=== PATIENT | male | born 1995 | race Hispanic/Latino ===

== ENCOUNTER 2018-07-29 09:14 | Emergency (ER) | payer SELFPAY ==
[2018-07-29 10:09] LABS: BASOPHILS % (AUTO) 0.5 % (0.0-5.0); EOSINOPHILS % (AUTO) 0.9 % (0.0-8.0); HEMATOCRIT 46.7 % (42-54); MEAN CORPUSCULAR HEMOGLOBIN 29.3 pg (27.0-33.0); MEAN CORPUSCULAR HGB CONC 33.3 g/dL (32.0-36.0); MONOCYTES % (AUTO) 5.7 % (3.0-13.0); NEUTROPHILS % (AUTO) 69.9 % (40.0-77.0); NUCLEATED RED BLOOD CELLS 0.1 % (0.0-0.19); PLATELET COUNT (AUTO) 332 K/uL (130-400); RED BLOOD CELL COUNT(AUTO) 5.31 MIL/uL (4.50-6.20); WHITE BLOOD COUNT (AUTO) 10.7 K/uL (4.8-10.8)
[2018-07-29] MEDS ORDERED: DICYCLOMINE HCL 10 MG/ML 2ML AMP IM ONE (10:09)
[2018-07-29] MEDS ORDERED: SODIUM CHLORIDE 0.9% 1000ML 1,000 ML IV ONE (10:09)
[2018-07-29] MEDS ORDERED: ONDANSETRON HCL 4 MG/2 ML VIAL ONE (10:09)
[2018-07-29 10:13] LABS: CREATININE 0.8 mg/dL (0.5-1.5); POTASSIUM 4.5 mmol/L (3.5-5.1)
[2018-07-29 10:17] LABS: ALBUMIN 3.8 g/dL (3.5-5.0); BILIRUBIN,DIRECT 0.1 mg/dL (0.0-0.3); BILIRUBIN,TOTAL 0.5 mg/dL (0.2-1.0); TOTAL PROTEIN, SERUM 7.6 g/dL (6.0-8.3)
[2018-07-29 11:12] LABS: AMPHET/METH SCREEN,URINE NEGATIVE (NEGATIVE); BARBITURATE SCREEN, URINE NEGATIVE (NEGATIVE); BENZODIAZEPINES SCREEN,URINE NEGATIVE (NEGATIVE); CANNABINOID SCREEN,URINE POSITIVE (NEGATIVE); COCAINE SCREEN,URINE NEGATIVE (NEGATIVE); OPIATE SCREEN,URINE NEGATIVE (NEGATIVE); PHENCYCLIDINE SCREEN,URINE NEGATIVE (NEGATIVE)
== END 2018-07-29 11:28 | disposition home or self-care (01) ==
LOC: EDH 09:14
DX: K52.9 Noninfective gastroenteritis and colitis, unspecified (principal); Z72.0 Tobacco use
CPT/HCPCS: 36415; 74021; 80048; 80076; 80305; 83690; 85025; 96361; 96372; 96374; 99284; J0500; J2405; J7030

== ENCOUNTER 2018-07-30 08:53 | Emergency (ER) | payer SELFPAY | END 2018-07-30 09:16 | disposition home or self-care (01) | LOC: EDH 08:53 | DX: R11.2 Nausea with vomiting, unspecified (principal); R19.7 Diarrhea, unspecified; Z79.899 Other long term (current) drug therapy | CPT/HCPCS: 99281 ==

== ENCOUNTER 2018-08-01 14:38 | Emergency (ER) | payer SELFPAY ==
[2018-08-01] MEDS ORDERED: SODIUM CHLORIDE 0.9% 1000ML 1,000 ML IV ONE (15:38)
[2018-08-01] MEDS ORDERED: ONDANSETRON HCL 4 MG/2 ML VIAL ONE (15:38)
[2018-08-01] MEDS ORDERED: FAMOTIDINE/PF 20 MG/2 ML VIAL IV ONE (15:39)
[2018-08-01 15:47] LABS: BASOPHILS % (AUTO) 0.5 % (0.0-5.0); EOSINOPHILS % (AUTO) 0.4 % (0.0-8.0); HEMATOCRIT 45.9 % (42-54); LYMPHOCYTES % (AUTO) 27.4 % (21.0-51.0); MEAN CORPUSCULAR HEMOGLOBIN 29.8 pg (27.0-33.0); MEAN CORPUSCULAR VOLUME 87.9 fL (80-100); MONOCYTES % (AUTO) 5.8 % (3.0-13.0); NEUTROPHILS % (AUTO) 65.9 % (40.0-77.0); NUCLEATED RED BLOOD CELLS 0.1 % (0.0-0.19); PLATELET COUNT (AUTO) 382 K/uL (130-400); RED BLOOD CELL COUNT(AUTO) 5.22 MIL/uL (4.50-6.20); RED CELL DISTRIBUTION WIDTH 13.2 % (11.0-15.5); WHITE BLOOD COUNT (AUTO) 11.2 K/uL (4.8-10.8)
[2018-08-01 16:04] LABS: CREATININE 0.9 mg/dL (0.5-1.5); POTASSIUM 4.3 mmol/L (3.5-5.1)
[2018-08-01 16:09] LABS: ALBUMIN 3.9 g/dL (3.5-5.0); BILIRUBIN,DIRECT 0.1 mg/dL (0.0-0.3); BILIRUBIN,TOTAL 0.9 mg/dL (0.2-1.0); TOTAL PROTEIN, SERUM 8.1 g/dL (6.0-8.3)
[2018-08-01 16:18] LABS: RAPID GROUP A STREP NEGATIVE (NEGATIVE)
[2018-08-01 16:54] LABS: APPEARANCE,URINE Clear (CLEAR); BILIRUBIN,URINE Negative (NEGATIVE); COLOR,URINE Yellow (YELLOW); GLUCOSE, URINE (UA) Negative (NEGATIVE); KETONES,URINE Trace mg/dL (NEGATIVE); LEUKOCYTE ESTERASE ,URINE Trace (NEGATIVE); NITRATE,URINE Negative (NEGATIVE); OCCULT BLOOD,URINE Negative (NEGATIVE); PROTEIN,URINE Negative (NEGATIVE); UROBILINOGEN,URINE 0.2 mg/dL (0.2-1.0)
[2018-08-01 17:07] LABS: RBC,URINE 0-1 /HPF (0-1)
[2018-08-01 17:08] LABS: BACTERIA,URINE Rare /HPF (None Seen); SQUAMOUS EPITHELIAL CELL,UR Rare /HPF (0-2)
[2018-08-01] MEDS ORDERED: IOHEXOL-350 75 ML VIAL IV ONE (17:10)
[2018-08-01] MEDS ORDERED: IPRATROPIUM/ALBUTEROL SULFATE 3 ML SOLUTION IH ONE (18:01)
[2018-08-01] MEDS ORDERED: LEVOFLOXACIN 500 MG/D5W 100 ML 100 ML ONE (18:42)
== END 2018-08-01 20:00 | disposition home or self-care (01) ==
LOC: EDH 14:38
DX: K57.92 Diverticulitis of intestine, part unspecified, without perforation or abscess without bleeding (principal); R11.2 Nausea with vomiting, unspecified; R05 Cough
CPT/HCPCS: 36415; 71046; 74177; 80048; 80076; 81001; 82150; 83690; 85025; 86677; 87804 ×2; 87880; 94640; 96365; 96367; 96375; 99284; J1956; J2405; J3490; J7030; Q9967

== ENCOUNTER 2018-08-02 08:00 | Emergency (ER) | payer SELFPAY ==
[2018-08-02] MEDS ORDERED: DiphenhydrAMINE HCL 50 MG/ML VIAL ONE (08:28)
[2018-08-02] MEDS ORDERED: LEVOFLOXACIN 750 MG/D5W 150 ML 150 ML ONE (08:28)
[2018-08-02] MEDS ORDERED: PROCHLORPERAZINE EDISYLATE 10 MG/2 ML VIAL ONE (08:29)
[2018-08-02] MEDS ORDERED: MORPHINE SULFATE 2 MG/ML 1ML SYG ONE (08:29)
[2018-08-02 08:40] LABS: BASOPHILS % (AUTO) 0.4 % (0.0-5.0); EOSINOPHILS % (AUTO) 0.5 % (0.0-8.0); LYMPHOCYTES % (AUTO) 24.6 % (21.0-51.0); MEAN CORPUSCULAR HEMOGLOBIN 29.2 pg (27.0-33.0); MEAN CORPUSCULAR HGB CONC 33.6 g/dL (32.0-36.0); NEUTROPHILS % (AUTO) 67.5 % (40.0-77.0); PLATELET COUNT (AUTO) 374 K/uL (130-400); RED BLOOD CELL COUNT(AUTO) 5.29 MIL/uL (4.50-6.20); WHITE BLOOD COUNT (AUTO) 10.9 K/uL (4.8-10.8)
[2018-08-02 08:41] LABS: POTASSIUM 4.1 mmol/L (3.5-5.1)
[2018-08-02 08:47] LABS: BILIRUBIN,TOTAL 1.2 mg/dL (0.2-1.0); TOTAL PROTEIN, SERUM 8.2 g/dL (6.0-8.3)
== END 2018-08-02 10:50 | disposition home or self-care (01) ==
LOC: EDH 08:00
DX: K57.92 Diverticulitis of intestine, part unspecified, without perforation or abscess without bleeding (principal)
CPT/HCPCS: 36415; 74177; 80053; 83690; 85025; 96365; 96366; 96375; 99284; J0780; J1200; J1956

== ENCOUNTER 2018-08-06 20:07 | Emergency (ER) | payer SELFPAY ==
[2018-08-06] MEDS ORDERED: SODIUM CHLORIDE 0.9% 1000ML 1,000 ML IV ONE (20:29)
[2018-08-06] MEDS ORDERED: ONDANSETRON HCL 4 MG/2 ML VIAL ONE (20:42)
[2018-08-06] MEDS ORDERED: MORPHINE SULFATE 4 MG/1ML SYG ONE (20:43)
[2018-08-06 20:47] LABS: BASOPHILS % (AUTO) 0.7 % (0.0-5.0); EOSINOPHILS % (AUTO) 0.4 % (0.0-8.0); HEMATOCRIT 48.5 % (42-54); MEAN CORPUSCULAR HEMOGLOBIN 28.7 pg (27.0-33.0); MEAN CORPUSCULAR HGB CONC 33.7 g/dL (32.0-36.0); MEAN CORPUSCULAR VOLUME 85.3 fL (80-100); MONOCYTES % (AUTO) 8.8 % (3.0-13.0); NEUTROPHILS % (AUTO) 60.1 % (40.0-77.0); NUCLEATED RED BLOOD CELLS 0.1 % (0.0-0.19); PLATELET COUNT (AUTO) 412 K/uL (130-400); RED BLOOD CELL COUNT(AUTO) 5.69 MIL/uL (4.50-6.20); RED CELL DISTRIBUTION WIDTH 12.7 % (11.0-15.5); WHITE BLOOD COUNT (AUTO) 9.7 K/uL (4.8-10.8)
[2018-08-06 21:09] LABS: CREATININE 0.9 mg/dL (0.5-1.5); POTASSIUM 3.8 mmol/L (3.5-5.1)
[2018-08-06 21:10] LABS: ALBUMIN 4.2 g/dL (3.5-5.0); BILIRUBIN,TOTAL 0.8 mg/dL (0.2-1.0); TOTAL PROTEIN, SERUM 8.7 g/dL (6.0-8.3)
[2018-08-06 21:17] LABS: B-TYPE NATRIURETIC PEPTIDE 6 pg/mL (0-100)
[2018-08-06 21:32] LABS: APPEARANCE,URINE Cloudy (CLEAR); BILIRUBIN,URINE Moderate (NEGATIVE); COLOR,URINE Dark Yellow (YELLOW); GLUCOSE, URINE (UA) Negative (NEGATIVE); KETONES,URINE >=160 mg/dL (NEGATIVE); LEUKOCYTE ESTERASE ,URINE Moderate (NEGATIVE); NITRATE,URINE Positive (NEGATIVE); OCCULT BLOOD,URINE Negative (NEGATIVE); PH,URINE 5.5 (5.0-8.0); PROTEIN,URINE POS 2+ (NEGATIVE)
[2018-08-06 21:39] LABS: AMPHET/METH SCREEN,URINE NEGATIVE (NEGATIVE); BACTERIA,URINE Few /HPF (None Seen); BARBITURATE SCREEN, URINE NEGATIVE (NEGATIVE); BENZODIAZEPINES SCREEN,URINE NEGATIVE (NEGATIVE); CANNABINOID SCREEN,URINE POSITIVE (NEGATIVE); COCAINE SCREEN,URINE NEGATIVE (NEGATIVE); MUCUS,URINE Many LPF (None Seen); OPIATE SCREEN,URINE POSITIVE (NEGATIVE); PHENCYCLIDINE SCREEN,URINE NEGATIVE (NEGATIVE); RBC,URINE None Seen /HPF (0-1); SQUAMOUS EPITHELIAL CELL,UR None Seen /HPF (0-2)
[2018-08-06 21:55] LABS: INR 1.04 (0.85-1.15); PARTIAL THROMBOPLASTIN TIME 32.4 SEC (26.3-35.5); PROTHROMBIN TIME 10.9 SEC (9.6-11.6)
== END 2018-08-06 22:06 | disposition home or self-care (01) ==
LOC: EDH 20:07
DX: K52.9 Noninfective gastroenteritis and colitis, unspecified (principal); K29.01 Acute gastritis with bleeding; E86.0 Dehydration; N39.0 Urinary tract infection, site not specified
CPT/HCPCS: 36415; 80053; 80305; 81001; 82270; 83605; 83690; 83880; 84484; 85025; 85610; 85730; 96361; 96374; 99284; J2270; J2405; J7030

== ENCOUNTER 2018-08-09 16:58 | Inpatient (IN) | payer OTHER ==
[~2018-08-09] VITALS: Ht 167.6 cm; Wt 101.6 kg
[2018-08-09 17:47] LABS: BASOPHILS % (AUTO) 0.7 % (0.0-5.0); HEMATOCRIT 46.3 % (42-54); LYMPHOCYTES % (AUTO) 29.1 % (21.0-51.0); MEAN CORPUSCULAR HEMOGLOBIN 29.6 pg (27.0-33.0); MEAN CORPUSCULAR HGB CONC 34.4 g/dL (32.0-36.0); MONOCYTES % (AUTO) 11.3 % (3.0-13.0); NEUTROPHILS % (AUTO) 57.9 % (40.0-77.0); PLATELET COUNT (AUTO) 424 K/uL (130-400); RED BLOOD CELL COUNT(AUTO) 5.39 MIL/uL (4.50-6.20); RED CELL DISTRIBUTION WIDTH 12.9 % (11.0-15.5); WHITE BLOOD COUNT (AUTO) 12.4 K/uL (4.8-10.8)
[2018-08-09 17:50] LABS: APPEARANCE,URINE CLOUDY (CLEAR); BILIRUBIN,URINE MODERATE (NEGATIVE); COLOR,URINE YELLOW (YELLOW); GLUCOSE, URINE (UA) NEGATIVE (NEGATIVE); KETONES,URINE 40 mg/dL (NEGATIVE); LEUKOCYTE ESTERASE ,URINE TRACE (NEGATIVE); NITRATE,URINE NEGATIVE (NEGATIVE); OCCULT BLOOD,URINE NEGATIVE (NEGATIVE); PROTEIN,URINE NEGATIVE (NEGATIVE); UROBILINOGEN,URINE 0.2 mg/dL (0.2-1.0)
[2018-08-09 17:58] LABS: RBC,URINE 0-1 /HPF (0-1)
[2018-08-09 17:59] LABS: CREATININE 0.8 mg/dL (0.5-1.5); POTASSIUM 3.4 mmol/L (3.5-5.1)
[2018-08-09 18:00] LABS: BACTERIA,URINE Rare /HPF (None Seen)
[2018-08-09] MEDS ORDERED: SODIUM CHLORIDE 0.9% 1000ML 1,000 ML IV ONE ×2 (18:00→21:40)
[2018-08-09] MEDS ORDERED: LEVOFLOXACIN 750 MG/D5W 150 ML 150 ML ONE (18:00)
[2018-08-09] MEDS ORDERED: ONDANSETRON HCL 4 MG/2 ML VIAL ONE (18:00)
[2018-08-09] MEDS ORDERED: METRONIDAZOLE 500MG/100ML BAG 100 ML ONE (18:01)
[2018-08-09] MEDS ORDERED: MORPHINE SULFATE 4 MG/1ML SYG ONE (18:01)
[2018-08-09 18:02] LABS: AMORPHOUS SEDIMENT,UR Few /LPF (None Seen); MUCUS,URINE Few LPF (None Seen); SQUAMOUS EPITHELIAL CELL,UR Few /HPF (0-2)
[2018-08-09 18:03] LABS: ALBUMIN 4.2 g/dL (3.5-5.0); BILIRUBIN,TOTAL 0.6 mg/dL (0.2-1.0)
[2018-08-09] MEDS: SODIUM CHLORIDE 0.9% 1000ML 1,000 ML IV SCH (21:27)
[2018-08-09] MEDS: LEVOFLOXACIN 500 MG/D5W 100 ML 100 ML IV SCH (21:30)
[2018-08-09] MEDS ORDERED: MORPHINE SULFATE 4 MG/1ML SYG IV PRN (21:30)
[2018-08-09] MEDS ORDERED: ONDANSETRON HCL 4 MG/2 ML VIAL IV PRN (21:30)
[2018-08-09] MEDS ORDERED: ACETAMINOPHEN 325 MG TAB PO PRN (21:30)
[2018-08-09 23:00] VITALS: BP 129/80
[2018-08-10 04:15] VITALS: BP 134/70
[2018-08-10] MEDS: SODIUM CHLORIDE 0.9% 1000ML 1,000 ML IV SCH ×4 (05:25→20:03)
[2018-08-10 08:00] VITALS: BP 131/94
[2018-08-10] MEDS ORDERED: POTASSIUM CHLORIDE 10MEQ/100ML 100 ML IV PRN (09:45)
[2018-08-10] MEDS ORDERED: POTASSIUM CHLORIDE 10% ELIXIR 20 MEQ/15 ML UDCUP PO PRN (09:45)
[2018-08-10] MEDS ORDERED: LIDOCAINE HCL-MPF 1% 2ML VIAL IVP PRN (09:45)
[2018-08-10] MEDS ORDERED: POTASSIUM CHLORIDE 20 MEQ ERTAB PO PRN (09:45)
[2018-08-10 10:05] LABS: BASOPHILS % (AUTO) 0.6 % (0.0-5.0); HEMATOCRIT 41.3 % (42-54); LYMPHOCYTES % (AUTO) 38.3 % (21.0-51.0); MEAN CORPUSCULAR HEMOGLOBIN 29.3 pg (27.0-33.0); MEAN CORPUSCULAR HGB CONC 33.9 g/dL (32.0-36.0); MEAN CORPUSCULAR VOLUME 86.4 fL (80-100); MONOCYTES % (AUTO) 10.6 % (3.0-13.0); NEUTROPHILS % (AUTO) 48.5 % (40.0-77.0); NUCLEATED RED BLOOD CELLS 0.1 % (0.0-0.19); PLATELET COUNT (AUTO) 325 K/uL (130-400); RED BLOOD CELL COUNT(AUTO) 4.78 MIL/uL (4.50-6.20); RED CELL DISTRIBUTION WIDTH 12.6 % (11.0-15.5); WHITE BLOOD COUNT (AUTO) 8.1 K/uL (4.8-10.8)
[2018-08-10 10:14] LABS: CREATININE 0.8 mg/dL (0.5-1.5); POTASSIUM 3.8 mmol/L (3.5-5.1)
[2018-08-10] MEDS ORDERED: DIATR MEGLU/DIATRIZOATE SODIUM 30 ML BOTTLE ONE (11:07)
[2018-08-10] MEDS: FAMOTIDINE/PF 20 MG/2 ML VIAL IV SCH ×2 (11:13→20:03)
[2018-08-10 12:00] VITALS: BP_SYST 145; BP_DIAS 67; BP_DIAS 90
[2018-08-10] MEDS: METRONIDAZOLE 500MG/100ML BAG 100 ML IV SCH ×2 (13:17→20:04)
[2018-08-10 16:00] VITALS: BP 130/79
[2018-08-10 19:30] VITALS: BP 147/90
[2018-08-10] MEDS: LEVOFLOXACIN 500 MG/D5W 100 ML 100 ML IV SCH (20:04)
[2018-08-11 00:16] VITALS: BP 123/68
[2018-08-11 04:22] LABS: BASOPHILS % (AUTO) 0.5 % (0.0-5.0); EOSINOPHILS % (AUTO) 1.6 % (0.0-8.0); HEMATOCRIT 40.2 % (42-54); MEAN CORPUSCULAR HGB CONC 34.6 g/dL (32.0-36.0); MEAN CORPUSCULAR VOLUME 86.5 fL (80-100); MONOCYTES % (AUTO) 11.2 % (3.0-13.0); NEUTROPHILS % (AUTO) 47.7 % (40.0-77.0); NUCLEATED RED BLOOD CELLS 0.1 % (0.0-0.19); PLATELET COUNT (AUTO) 356 K/uL (130-400); RED BLOOD CELL COUNT(AUTO) 4.65 MIL/uL (4.50-6.20); RED CELL DISTRIBUTION WIDTH 12.6 % (11.0-15.5); WHITE BLOOD COUNT (AUTO) 9.6 K/uL (4.8-10.8)
[2018-08-11 04:33] LABS: CREATININE 0.9 mg/dL (0.5-1.5); POTASSIUM 3.6 mmol/L (3.5-5.1)
[2018-08-11 04:42] VITALS: BP 126/73
[2018-08-11] MEDS: METRONIDAZOLE 500MG/100ML BAG 100 ML IV SCH (05:27)
[2018-08-11] MEDS: SODIUM CHLORIDE 0.9% 1000ML 1,000 ML IV SCH (06:47)
[2018-08-11 08:00] VITALS: BP 138/84
[2018-08-11] MEDS ORDERED: METR-224 PO (08:07)
[2018-08-11] MEDS ORDERED: LEVO500T2 PO (08:07)
[2018-08-11] MEDS: FAMOTIDINE/PF 20 MG/2 ML VIAL IV SCH (09:12)
== END 2018-08-11 13:20 | disposition home or self-care (01) | DRG 392 ==
LOC: EDH 16:58 → OBSVTOIN 16:59 → EDHIP 16:59 → 4CH 23:44
PROVIDERS: ADMIT Internal Medicine; ATTEND Internal Medicine
DX: K57.92 Diverticulitis of intestine, part unspecified, without perforation or abscess without bleeding (principal); N39.0 Urinary tract infection, site not specified; E86.0 Dehydration; E87.6 Hypokalemia; K29.70 Gastritis, unspecified, without bleeding
CPT/HCPCS: 36415; 74176; 80048; 80053; 81001; 83690; 85025; 87088; G0378; J1956; J2270; J2405; J3490; J7030; Q9963

== ENCOUNTER 2018-11-02 13:55 | Emergency (ER) | payer OTHER ==
[~2018-11-02 13:55] MED LIST: LEVO500T2 PO; METR-172 PO
[2018-11-02 14:39] LABS: BASOPHILS % (AUTO) 0.4 % (0.0-5.0); EOSINOPHILS % (AUTO) 0.2 % (0.0-8.0); HEMATOCRIT 47.9 % (42-54); LYMPHOCYTES % (AUTO) 14.1 % (21.0-51.0); MEAN CORPUSCULAR HEMOGLOBIN 28.9 pg (27.0-33.0); MEAN CORPUSCULAR HGB CONC 33.9 g/dL (32.0-36.0); MEAN CORPUSCULAR VOLUME 85.4 fL (80-100); MONOCYTES % (AUTO) 4.9 % (3.0-13.0); NEUTROPHILS % (AUTO) 80.4 % (40.0-77.0); NUCLEATED RED BLOOD CELLS 0.1 % (0.0-0.19); PLATELET COUNT (AUTO) 331 K/uL (130-400); RED CELL DISTRIBUTION WIDTH 13.6 % (11.0-15.5)
[2018-11-02] MEDS ORDERED: ONDANSETRON HCL 4 MG/2 ML VIAL ONE (14:41)
[2018-11-02 15:10] LABS: CREATININE 0.8 mg/dL (0.5-1.5); POTASSIUM 4.1 mmol/L (3.5-5.1)
[2018-11-02 15:14] LABS: ALBUMIN 4.1 g/dL (3.5-5.0); BILIRUBIN,TOTAL 0.8 mg/dL (0.2-1.0); TOTAL PROTEIN, SERUM 8.2 g/dL (6.0-8.3)
[2018-11-02 15:49] LABS: APPEARANCE,URINE Clear (CLEAR); BILIRUBIN,URINE Negative (NEGATIVE); COLOR,URINE Yellow (YELLOW); GLUCOSE, URINE (UA) Negative (NEGATIVE); KETONES,URINE Trace mg/dL (NEGATIVE); LEUKOCYTE ESTERASE ,URINE Negative (NEGATIVE); NITRATE,URINE Negative (NEGATIVE); OCCULT BLOOD,URINE Negative (NEGATIVE); PH,URINE 6.5 (5.0-8.0); PROTEIN,URINE Negative (NEGATIVE)
[2018-11-02 16:25] LABS: BACTERIA,URINE Few /HPF (None Seen); RBC,URINE 0-1 /HPF (0-1); WBC,URINE 0-1 /HPF (0-1)
[2018-11-02 16:26] LABS: SQUAMOUS EPITHELIAL CELL,UR 0-2 /HPF (0-2)
== END 2018-11-02 16:15 | disposition home or self-care (01) ==
LOC: EDH 13:55
DX: K52.9 Noninfective gastroenteritis and colitis, unspecified (principal)
CPT/HCPCS: 36415; 80053; 81001; 85025; 87804 ×2; 96361; 96374; 99283; J2405

== ENCOUNTER 2018-11-03 18:08 | Inpatient (IN) | payer OTHER ==
[~2018-11-03] VITALS: Ht 170.2 cm; Wt 100.7 kg
[2018-11-03] MEDS ORDERED: KETOROLAC TROMETHAMINE 30MG/ML ONE (18:56)
[2018-11-03] MEDS ORDERED: ONDANSETRON HCL 4 MG/2 ML VIAL ONE (18:56)
[2018-11-03 19:27] LABS: BASOPHILS % (AUTO) 0.4 % (0.0-5.0); HEMATOCRIT 47.3 % (42-54); LYMPHOCYTES % (AUTO) 11.5 % (21.0-51.0); MEAN CORPUSCULAR HEMOGLOBIN 28.7 pg (27.0-33.0); MEAN CORPUSCULAR HGB CONC 33.4 g/dL (32.0-36.0); MEAN CORPUSCULAR VOLUME 85.9 fL (80-100); MONOCYTES % (AUTO) 3.4 % (3.0-13.0); NEUTROPHILS % (AUTO) 84.7 % (40.0-77.0); PLATELET COUNT (AUTO) 426 K/uL (130-400); RED CELL DISTRIBUTION WIDTH 13.8 % (11.0-15.5); WHITE BLOOD COUNT (AUTO) 11.5 K/uL (4.8-10.8)
[2018-11-03 19:30] LABS: CREATININE 0.9 mg/dL (0.5-1.5); POTASSIUM 3.6 mmol/L (3.5-5.1)
[2018-11-03 19:34] LABS: ALBUMIN 4.4 g/dL (3.5-5.0); BILIRUBIN,TOTAL 0.7 mg/dL (0.2-1.0); TOTAL PROTEIN, SERUM 8.6 g/dL (6.0-8.3)
[2018-11-03] MEDS ORDERED: PROMETHAZINE HCL 25 MG/ML 1ML AMPULE IM ONE (20:16)
[2018-11-03] MEDS: LEVOFLOXACIN 500 MG/D5W 100 ML 100 ML IV SCH (21:00)
[2018-11-03] MEDS ORDERED: PROMETHAZINE HCL 25 MG/ML 1ML AMPULE IM PRN (21:00)
[2018-11-03] MEDS ORDERED: MORPHINE SULFATE 2 MG/ML 1ML SYG IV PRN (21:00)
[2018-11-03] MEDS ORDERED: LEVOFLOXACIN 500 MG/D5W 100 ML 100 ML ONE (21:57)
[2018-11-03] MEDS: METRONIDAZOLE 500MG/100ML BAG 100 ML IV SCH (22:00)
[2018-11-04] MEDS ORDERED: METRONIDAZOLE 500MG/100ML BAG 100 ML ONE ×2 (01:50→10:10)
[2018-11-04] MEDS: METRONIDAZOLE 500MG/100ML BAG 100 ML IV SCH ×3 (06:00→21:03)
[2018-11-04] MEDS ORDERED: ONDANSETRON HCL 4 MG/2 ML VIAL ONE (07:59)
[2018-11-04] MEDS ORDERED: ENOXAPARIN SODIUM 30 MG/0.3 ML SQ ONE (08:00)
[2018-11-04] MEDS: ENOXAPARIN SODIUM 40 MG/0.4 ML SYRINGE SQ SCH (09:00)
[2018-11-04] MEDS: FAMOTIDINE/PF 20 MG/2 ML VIAL IV SCH ×2 (09:00→19:47)
[2018-11-04] MEDS ORDERED: PROMETHAZINE HCL 25 MG/ML 1ML AMPULE IM ONE (12:33)
--- NOTE | 2018-11-04 14:00 | NUR ---
INITIAL ASSESSMENT PATIENT REPORTS NO ABDOMINAL PAIN AT THIS TIME, REPORTS THE LAST TIME HE FELT ABDOMINAL PAIN WAS THIS MORNING WHEN HE FELT NAUSEOUS. PATIENT GIVEN PHENERGAN IN THE ER PRIOR TO ARRIVAL TO FLOOR AND PATIENT REPORTS NAUSEA HAS SUBSIDED FOR NOW. DURING ADMISSION ASSESSMENT PATIENT REPORTS HE HAS BEEN ADMITTED IN THE PAST FOR DIVERTICULITIS (APPROXIMATELY JULY 2018). PATIENT REPORTS BEING TESTED POSITIVE FOR C. DIFF IN AUGUST 2018 AND FINISHED COURSE OF ANTIBIOTICS, PATIENTS MOTHER AT BEDSIDE CONFIRMS PATIENTS MEDICAL HISTORY. PLACED ON CONTACT PLUS PRECAUTIONS FOR NOW.
[2018-11-04 14:10] VITALS: BP 118/68
[2018-11-04] MEDS: SODIUM CHLORIDE 0.9% 1000ML 1,000 ML IV SCH ×2 (14:33→16:47)
[2018-11-04] MEDS: ONDANSETRON HCL 4 MG/2 ML VIAL IV PRN (15:33)
[2018-11-04 16:00] VITALS: BP 147/86
[2018-11-04 19:31] VITALS: BP 122/75
[2018-11-04] MEDS: LEVOFLOXACIN 500 MG/D5W 100 ML 100 ML IV SCH (19:47)
--- NOTE | 2018-11-04 21:11 | NUR ---
n/v vomited approximate 100 cc of green gastric secretions, phenergan 12.5 mg IM given left deltoid area, tolerated well, continue npo , continue ivf as ordered, family members at bedside, teach plan of care and expected outcome, both verbalize understanding via teach back
--- NOTE | 2018-11-04 22:00 | NUR ---
med effect n/v resolved, ivf infusing well
[2018-11-04 23:21] VITALS: BP 149/97
[2018-11-05 03:18] VITALS: BP 147/91
[2018-11-05] MEDS: SODIUM CHLORIDE 0.9% 1000ML 1,000 ML IV SCH ×3 (03:37→19:32)
[2018-11-05 04:17] LABS: HEMATOCRIT 42.5 % (42-54); MEAN CORPUSCULAR HEMOGLOBIN 28.8 pg (27.0-33.0); MEAN CORPUSCULAR HGB CONC 33.4 g/dL (32.0-36.0); MEAN CORPUSCULAR VOLUME 86.2 fL (80-100); PLATELET COUNT (AUTO) 381 K/uL (130-400); RED BLOOD CELL COUNT(AUTO) 4.92 MIL/uL (4.50-6.20); RED CELL DISTRIBUTION WIDTH 13.7 % (11.0-15.5); WHITE BLOOD COUNT (AUTO) 9.7 K/uL (4.8-10.8)
[2018-11-05 04:23] LABS: CREATININE 0.9 mg/dL (0.5-1.5); CRP QUANTITATIVE 2.3 mg/L (0.00-9.0); POTASSIUM 3.6 mmol/L (3.5-5.1)
[2018-11-05] MEDS: METRONIDAZOLE 500MG/100ML BAG 100 ML IV SCH ×3 (04:56→21:28)
[2018-11-05 05:13] LABS: ERYTHROCYTE SEDIMENTATION RATE 5 MM/HR (0-15)
[2018-11-05 07:48] VITALS: BP 142/88
[2018-11-05] MEDS: ENOXAPARIN SODIUM 40 MG/0.4 ML SYRINGE SQ SCH (09:39)
[2018-11-05] MEDS: FAMOTIDINE/PF 20 MG/2 ML VIAL IV SCH ×2 (09:39→19:32)
--- NOTE | 2018-11-05 10:10 | NUR ---
CM NOTE RICKY W PT, ALONE, ENG SPEAKING, AAOX 3, INDP I ALL ADLS ; LIVES W MOM, SON, SISTER.. MOM WILL PROVIDE TRANSPORT ON DISCHARGE-UNEMPLOYED, NO PRIVATE MD, SELF PAY PKT IN CHART (PT ON CONTACT [place]) TO BE GIVEN AT DISCHARGE Addendum: 11/08/18 at 1013 by PATRICIA NAPOLES RN CM Amended: Links added.
--- NOTE | 2018-11-05 10:58 | NUR ---
Nutrition Intervention: Nutrition consult due to Hx of diverticulitis. Pt. admitted with Dx of Diverticulosis/diverticulitis. Pt. NPO x 2 days. Pt. denies problems with N/V at this time. Labs reviewed(Alb 4.4). LBM: 11/02/18. SR-21, elastic. BMI: 34.8, obesity grade 1. Pt. reports has been educated on Low fiber diet in the past and declined nutrition education at this time. Left Low Fiber Nutrition therapy education material with patient. Recommendations: 1) When medically feasible, rec. advance diet as tolerated to Low Fiber Soft bland diet. 2) Continue to monitor pt's nutritional status and diet advancement. 3) Consult RD as nutrition concerns arise. Addendum: 11/05/18 at [address] Amended: Links added.
[2018-11-05 11:51] VITALS: BP 142/85
[2018-11-05 16:00] VITALS: BP 135/79
[2018-11-05 19:20] VITALS: BP 130/72
[2018-11-05] MEDS: LEVOFLOXACIN 500 MG/D5W 100 ML 100 ML IV SCH (19:32)
[2018-11-06] VITALS (7 sets, daily range): BP systolic 118–144; BP diastolic 60–85
[2018-11-06] MEDS: PROMETHAZINE HCL 25 MG/ML 1ML AMPULE IM PRN (02:00)
--- NOTE | 2018-11-06 02:00 | NUR ---
n/v vomited approximate 100 cc of yellowish gastric secretions, phenergan 12.5 mg im given to right deltoid area, continue ivf as ordered,call eli at reach
--- NOTE | 2018-11-06 02:38 | NUR ---
MED EFFECT RESTING COMFORTABLY, NO N/V AT THIS TIME
[2018-11-06] MEDS: ONDANSETRON HCL 4 MG/2 ML VIAL IV PRN (04:00)
[2018-11-06 04:35] LABS: HEMATOCRIT 43.1 % (42-54); MEAN CORPUSCULAR HEMOGLOBIN 29.2 pg (27.0-33.0); MEAN CORPUSCULAR HGB CONC 34.2 g/dL (32.0-36.0); MEAN CORPUSCULAR VOLUME 85.4 fL (80-100); NUCLEATED RED BLOOD CELLS 0.1 % (0.0-0.19); PLATELET COUNT (AUTO) 324 K/uL (130-400); RED BLOOD CELL COUNT(AUTO) 5.05 MIL/uL (4.50-6.20); RED CELL DISTRIBUTION WIDTH 13.6 % (11.0-15.5); WHITE BLOOD COUNT (AUTO) 10.1 K/uL (4.8-10.8)
[2018-11-06 04:37] LABS: CREATININE 0.9 mg/dL (0.5-1.5); POTASSIUM 3.5 mmol/L (3.5-5.1)
[2018-11-06] MEDS: METRONIDAZOLE 500MG/100ML BAG 100 ML IV SCH ×3 (05:00→23:32)
[2018-11-06] MEDS ORDERED: POTASSIUM CHLORIDE 20 MEQ ERTAB PO PRN (06:00)
[2018-11-06] MEDS ORDERED: POTASSIUM CHLORIDE 20MEQ/100ML 100 ML IV PRN (06:00)
[2018-11-06] MEDS ORDERED: POTASSIUM CHLORIDE 10% ELIXIR 20 MEQ/15 ML UDCUP PO PRN (06:00)
[2018-11-06] MEDS ORDERED: LIDOCAINE HCL-MPF 1% 2ML VIAL IVP PRN (06:00)
[2018-11-06] MEDS ORDERED: POTASSIUM CHLORIDE 20MEQ/100ML 100 ML IV ONE (06:37)
[2018-11-06] MEDS ORDERED: LIDOCAINE HCL-MPF 1% 2ML VIAL ONE (06:37)
[2018-11-06] MEDS: SODIUM CHLORIDE 0.9% 1000ML 1,000 ML IV SCH (06:48)
[2018-11-06] MEDS: FAMOTIDINE/PF 20 MG/2 ML VIAL IV SCH ×2 (09:53→20:55)
[2018-11-06] MEDS: ENOXAPARIN SODIUM 40 MG/0.4 ML SYRINGE SQ SCH (09:54)
[2018-11-06] MEDS: LEVOFLOXACIN 500 MG/D5W 100 ML 100 ML IV SCH (20:55)
[2018-11-07 03:45] VITALS: BP 113/64
[2018-11-07 05:30] LABS: BASOPHILS % (AUTO) 0.3 % (0.0-5.0); EOSINOPHILS % (AUTO) 0.6 % (0.0-8.0); HEMATOCRIT 42.2 % (42-54); LYMPHOCYTES % (AUTO) 35.4 % (21.0-51.0); MEAN CORPUSCULAR HEMOGLOBIN 28.9 pg (27.0-33.0); MEAN CORPUSCULAR HGB CONC 33.8 g/dL (32.0-36.0); MEAN CORPUSCULAR VOLUME 85.5 fL (80-100); MONOCYTES % (AUTO) 8.8 % (3.0-13.0); NEUTROPHILS % (AUTO) 54.9 % (40.0-77.0); NUCLEATED RED BLOOD CELLS 0.1 % (0.0-0.19); PLATELET COUNT (AUTO) 329 K/uL (130-400); RED BLOOD CELL COUNT(AUTO) 4.93 MIL/uL (4.50-6.20); RED CELL DISTRIBUTION WIDTH 13.7 % (11.0-15.5); WHITE BLOOD COUNT (AUTO) 9.7 K/uL (4.8-10.8)
[2018-11-07] MEDS: METRONIDAZOLE 500MG/100ML BAG 100 ML IV SCH ×3 (05:55→22:09)
[2018-11-07 08:00] VITALS: BP 122/83
[2018-11-07] MEDS: FAMOTIDINE/PF 20 MG/2 ML VIAL IV SCH (08:41)
[2018-11-07] MEDS: ENOXAPARIN SODIUM 40 MG/0.4 ML SYRINGE SQ SCH (08:42)
[2018-11-07] MEDS: ONDANSETRON HCL 4 MG/2 ML VIAL IV PRN ×2 (10:52→16:21)
[2018-11-07 12:00] VITALS: BP 142/84
[2018-11-07] MEDS: PROMETHAZINE HCL 25 MG/ML 1ML AMPULE IM PRN (12:44)
[2018-11-07 16:00] VITALS: BP 137/100
[2018-11-07] MEDS ORDERED: LORAZEPAM 0.5 MG TABLET PO PRN (16:45)
[2018-11-07] MEDS: SODIUM CHLORIDE 0.9% 1000ML 1,000 ML IV SCH (17:00)
[2018-11-07] MEDS: METOCLOPRAMIDE 10 MG/2 ML VIAL IVP SCH (17:02)
[2018-11-07] MEDS: HYDROMORPHONE HCL 0.5 MG/0.5 ML ML IVP PRN ×2 (17:15→23:17)
[2018-11-07 19:15] VITALS: BP 117/66
--- NOTE | 2018-11-07 19:30 | NUR ---
PT REFUSING VITALS FOR THIS SHIFT, WOULD LIKE TO REST THROUGH THE NIGHT
[2018-11-07] MEDS ORDERED: FAMOTIDINE 20MG TAB 20 MG TAB PO SCH (21:00)
[2018-11-07] MEDS: LEVOFLOXACIN 500 MG/D5W 100 ML 100 ML IV SCH (21:00)
[2018-11-08] MEDS: METOCLOPRAMIDE 10 MG/2 ML VIAL IVP SCH ×3 (06:05→16:48)
[2018-11-08] MEDS: METRONIDAZOLE 500MG/100ML BAG 100 ML IV SCH ×3 (06:06→21:39)
[2018-11-08 06:07] LABS: HEMATOCRIT 45.2 % (42-54); MEAN CORPUSCULAR HGB CONC 34.1 g/dL (32.0-36.0); MEAN CORPUSCULAR VOLUME 84.9 fL (80-100); PLATELET COUNT (AUTO) 318 K/uL (130-400); RED BLOOD CELL COUNT(AUTO) 5.33 MIL/uL (4.50-6.20); WHITE BLOOD COUNT (AUTO) 13.3 K/uL (4.8-10.8)
[2018-11-08 06:12] LABS: CREATININE 0.9 mg/dL (0.5-1.5); POTASSIUM 3.5 mmol/L (3.5-5.1)
[2018-11-08 07:52] VITALS: BP 114/63
[2018-11-08] MEDS ORDERED: PANTOPRAZOLE SODIUM 40 MG TABLET.DR PO SCH (08:51)
[2018-11-08] MEDS ORDERED: PANTOPRAZOLE 40 MG/VIAL IVP SCH (09:00)
[2018-11-08] MEDS ORDERED: LEVOFLOXACIN 500 MG TABLET PO SCH (09:00)
--- NOTE | 2018-11-08 10:00 | NUR ---
PATIENT REPORT PATIENT DID NOT EAT HIS BREAKFAST. REPORTS ABDOMEN "FEELS SORE", BUT ABDOMINAL PAIN NOT LIKE IT WAS YESTERDAY. PATIENT HAS HAD ONE EPISODE OF GREEN COLORED EMESIS.
[2018-11-08] MEDS: ENOXAPARIN SODIUM 40 MG/0.4 ML SYRINGE SQ SCH (10:44)
[2018-11-08] MEDS: SODIUM CHLORIDE 0.9% 1000ML 1,000 ML IV SCH (10:47)
[2018-11-08 11:39] VITALS: BP 133/81
--- NOTE | 2018-11-08 14:50 | NUR ---
PATIENT REPORT PATIENT REPORTS NO NAUSEA AND REPORTS FEELING HUNGRY. WILL RESUME PATIENTS CLEAR DIET FOR NOW.
--- NOTE | 2018-11-08 15:30 | NUR ---
CT ABD/PELVIS RESULT INFORMED Hemal GAYTAN NP FOR HOSPITALIST OF REPEAT CT ABD/PELVIS RESULTS, ORDERS PLACED.
[2018-11-08 16:19] VITALS: BP 138/93
--- NOTE | 2018-11-08 17:23 | NUR ---
Nutrition f/u: Pt with diet downgraded to NPO s/p n/v. Pt's nurse reports monitoring nausea for diet advancement, Medication provided. Pt with no nutritional questions on low fiber diet. Recommendation: When medically feasible, advance diet therapy to goal diet of GI Soft diet for optimal nutritional therapy. Addendum: 11/08/18 at [address] RD Amended: Links added.
[2018-11-08] MEDS: HYDROMORPHONE HCL 0.5 MG/0.5 ML ML IVP PRN (18:02)
[2018-11-08] MEDS: POTASSIUM CHLORIDE 20MEQ/100ML 100 ML IV PRN (18:10)
[2018-11-08] MEDS: LIDOCAINE HCL-MPF 1% 2ML VIAL IVP PRN ×2 (18:12→22:02)
--- NOTE | 2018-11-08 19:31 | NUR ---
PAGELucia PARIKH MD REGARDING CONSULT. NO ANSWER AT THIS TIME.
[2018-11-08 21:18] VITALS: BP 133/76
[2018-11-08] MEDS: LEVOFLOXACIN 500 MG/D5W 100 ML 100 ML IV SCH (21:39)
[2018-11-09 00:12] VITALS: BP 131/78
[2018-11-09] MEDS: HYDROMORPHONE HCL 0.5 MG/0.5 ML ML IVP PRN ×3 (01:27→17:14)
[2018-11-09] MEDS: SODIUM CHLORIDE 0.9% 1000ML 1,000 ML IV SCH ×3 (01:27→21:12)
[2018-11-09 04:12] LABS: BASOPHILS % (AUTO) 0.5 % (0.0-5.0); EOSINOPHILS % (AUTO) 0.1 % (0.0-8.0); HEMATOCRIT 43.4 % (42-54); LYMPHOCYTES % (AUTO) 18.6 % (21.0-51.0); MEAN CORPUSCULAR HEMOGLOBIN 28.6 pg (27.0-33.0); MEAN CORPUSCULAR HGB CONC 33.4 g/dL (32.0-36.0); MEAN CORPUSCULAR VOLUME 85.4 fL (80-100); MONOCYTES % (AUTO) 9.8 % (3.0-13.0); PLATELET COUNT (AUTO) 326 K/uL (130-400); RED BLOOD CELL COUNT(AUTO) 5.08 MIL/uL (4.50-6.20); RED CELL DISTRIBUTION WIDTH 13.8 % (11.0-15.5); WHITE BLOOD COUNT (AUTO) 15.4 K/uL (4.8-10.8)
[2018-11-09 04:21] VITALS: BP 116/65
[2018-11-09 04:24] LABS: CREATININE 0.8 mg/dL (0.5-1.5); POTASSIUM 3.8 mmol/L (3.5-5.1)
[2018-11-09] MEDS: METRONIDAZOLE 500MG/100ML BAG 100 ML IV SCH ×3 (05:05→21:12)
[2018-11-09] MEDS: METOCLOPRAMIDE 10 MG/2 ML VIAL IVP SCH ×4 (05:12→17:13)
[2018-11-09] MEDS ORDERED: PHARMACY COMMUNICATION MISC SCH (05:15)
[2018-11-09 08:23] VITALS: BP 119/61
[2018-11-09] MEDS: PANTOPRAZOLE 40 MG/VIAL IVP SCH (09:59)
[2018-11-09] MEDS: ENOXAPARIN SODIUM 40 MG/0.4 ML SYRINGE SQ SCH (10:00)
[2018-11-09] MEDS: ONDANSETRON HCL 4 MG/2 ML VIAL IV PRN (10:10)
[2018-11-09 11:49] VITALS: BP 122/84
[2018-11-09] MEDS ORDERED: DIATR MEGLU/DIATRIZOATE SODIUM 30 ML BOTTLE ONE (12:07)
--- NOTE | 2018-11-09 13:30 | NUR ---
DR DONATO IN ROUNDED ON PATIENT NO NEW ORDERED RECEIVED
--- NOTE | 2018-11-09 13:50 | NUR ---
DR CAST ROUNDED ON PATIENT ORDERED FOR CT ABD AND PELVIS WITH AND WITHOUT CONTRAST PATIENT CONSENTED
[2018-11-09] MEDS: FLUCONAZOLE 200 MG/NS 100 ML 100 ML IV SCH (13:59)
[2018-11-09] MEDS ORDERED: IOHEXOL-350 75 ML VIAL IV ONE (15:05)
[2018-11-09] MEDS: ZOSYN 3.375GM+NS 50ML 50 ML IV SCH ×2 (15:57→21:12)
[2018-11-09 16:00] VITALS: BP 120/75
[2018-11-09 20:59] VITALS: BP 130/71
[2018-11-10 00:21] VITALS: BP 127/82
[2018-11-10 03:54] VITALS: BP 118/62
[2018-11-10 04:40] LABS: BASOPHILS % (AUTO) 0.2 % (0.0-5.0); EOSINOPHILS % (AUTO) 0.4 % (0.0-8.0); HEMATOCRIT 40.4 % (42-54); LYMPHOCYTES % (AUTO) 18.2 % (21.0-51.0); MEAN CORPUSCULAR HEMOGLOBIN 29.3 pg (27.0-33.0); MEAN CORPUSCULAR VOLUME 85.9 fL (80-100); MONOCYTES % (AUTO) 10.1 % (3.0-13.0); NEUTROPHILS % (AUTO) 71.1 % (40.0-77.0); PLATELET COUNT (AUTO) 274 K/uL (130-400); RED CELL DISTRIBUTION WIDTH 13.7 % (11.0-15.5); WHITE BLOOD COUNT (AUTO) 10.7 K/uL (4.8-10.8)
[2018-11-10 05:08] LABS: CREATININE 0.8 mg/dL (0.5-1.5); POTASSIUM 3.7 mmol/L (3.5-5.1)
[2018-11-10] MEDS: SODIUM CHLORIDE 0.9% 1000ML 1,000 ML IV SCH ×2 (05:22→22:03)
[2018-11-10] MEDS: METOCLOPRAMIDE 10 MG/2 ML VIAL IVP SCH ×3 (05:23→18:41)
[2018-11-10] MEDS: ZOSYN 3.375GM+NS 50ML 50 ML IV SCH ×3 (05:23→22:03)
[2018-11-10] MEDS: METRONIDAZOLE 500MG/100ML BAG 100 ML IV SCH ×3 (05:23→22:03)
[2018-11-10 08:00] VITALS: BP 123/75
[2018-11-10] MEDS: PANTOPRAZOLE 40 MG/VIAL IVP SCH (09:00)
[2018-11-10] MEDS: ENOXAPARIN SODIUM 40 MG/0.4 ML SYRINGE SQ SCH (10:59)
[2018-11-10 12:00] VITALS: BP 137/92
[2018-11-10] MEDS: HYDROMORPHONE HCL 0.5 MG/0.5 ML ML IVP PRN ×2 (12:31→22:03)
[2018-11-10] MEDS: FLUCONAZOLE 200 MG/NS 100 ML 100 ML IV SCH (13:26)
[2018-11-10 16:00] VITALS: BP 125/76
[2018-11-10 20:00] VITALS: BP 136/86
[2018-11-11] VITALS: BP 129/77
[2018-11-11 04:00] VITALS: BP 124/76
[2018-11-11] MEDS: METOCLOPRAMIDE 10 MG/2 ML VIAL IVP SCH ×3 (05:03→17:52)
[2018-11-11] MEDS: METRONIDAZOLE 500MG/100ML BAG 100 ML IV SCH ×3 (05:03→20:48)
[2018-11-11] MEDS: ZOSYN 3.375GM+NS 50ML 50 ML IV SCH ×3 (05:03→20:47)
[2018-11-11 05:10] LABS: HEMATOCRIT 38.5 % (42-54); MEAN CORPUSCULAR HEMOGLOBIN 29.1 pg (27.0-33.0); MEAN CORPUSCULAR VOLUME 85.6 fL (80-100); NUCLEATED RED BLOOD CELLS 0.1 % (0.0-0.19); PLATELET COUNT (AUTO) 334 K/uL (130-400); RED BLOOD CELL COUNT(AUTO) 4.49 MIL/uL (4.50-6.20); RED CELL DISTRIBUTION WIDTH 13.5 % (11.0-15.5); WHITE BLOOD COUNT (AUTO) 8.8 K/uL (4.8-10.8)
[2018-11-11 05:12] LABS: CREATININE 0.7 mg/dL (0.5-1.5); POTASSIUM 3.3 mmol/L (3.5-5.1)
[2018-11-11 08:00] VITALS: BP 114/61
[2018-11-11] MEDS: ENOXAPARIN SODIUM 40 MG/0.4 ML SYRINGE SQ SCH (10:00)
[2018-11-11] MEDS: PANTOPRAZOLE SODIUM 40 MG TABLET.DR PO SCH (10:00)
[2018-11-11] MEDS: SODIUM CHLORIDE 0.9% 1000ML 1,000 ML IV SCH (10:03)
[2018-11-11 12:00] VITALS: BP 129/81
[2018-11-11] MEDS: FLUCONAZOLE 200 MG/NS 100 ML 100 ML IV SCH (13:13)
[2018-11-11 16:00] VITALS: BP 129/84
--- NOTE | 2018-11-11 17:41 | NUR ---
Nutrition f/u: Pt with diet advanced to full liquid diet at time of RD visit. Pt's RN reports pt is currently tolerating and is scheduled to advance diet for discharge. Pt with no nutritional questions or concerns. Please consult RD as nutrition concerns arise. Recommendations: GI soft diet therapy as tolerated. Addendum: 11/11/18 at [address] RD Amended: Links added.
--- NOTE | 2018-11-11 18:39 | NUR ---
CM NOTES CHART REVIEWED, PLAN REMAINS HOME , NO DC NEEDS ANTICIPATED
[2018-11-11 20:00] VITALS: BP 126/75
[2018-11-12] VITALS: BP 122/72
[2018-11-12] MEDS: LIDOCAINE HCL-MPF 1% 2ML VIAL IVP PRN (01:40)
[2018-11-12] MEDS: POTASSIUM CHLORIDE 20MEQ/100ML 100 ML IV PRN (01:40)
[2018-11-12] MEDS: SODIUM CHLORIDE 0.9% 1000ML 1,000 ML IV SCH ×2 (01:41→15:31)
[2018-11-12 04:00] VITALS: BP 118/72
[2018-11-12 04:29] LABS: HEMATOCRIT 39.9 % (42-54); MEAN CORPUSCULAR HEMOGLOBIN 28.9 pg (27.0-33.0); PLATELET COUNT (AUTO) 334 K/uL (130-400); RED BLOOD CELL COUNT(AUTO) 4.69 MIL/uL (4.50-6.20); RED CELL DISTRIBUTION WIDTH 13.8 % (11.0-15.5); WHITE BLOOD COUNT (AUTO) 7.2 K/uL (4.8-10.8)
[2018-11-12 04:42] LABS: CREATININE 0.7 mg/dL (0.5-1.5); POTASSIUM 3.6 mmol/L (3.5-5.1)
[2018-11-12] MEDS: ZOSYN 3.375GM+NS 50ML 50 ML IV SCH ×2 (06:30→13:00)
[2018-11-12] MEDS: METOCLOPRAMIDE 10 MG/2 ML VIAL IVP SCH ×3 (06:30→17:00)
[2018-11-12] MEDS: METRONIDAZOLE 500MG/100ML BAG 100 ML IV SCH ×2 (06:30→15:00)
[2018-11-12 08:00] VITALS: BP 122/73
[2018-11-12] MEDS: ENOXAPARIN SODIUM 40 MG/0.4 ML SYRINGE SQ SCH (09:03)
[2018-11-12] MEDS: PANTOPRAZOLE SODIUM 40 MG TABLET.DR PO SCH (09:03)
[2018-11-12 12:00] VITALS: BP 126/73
[2018-11-12] MEDS: FLUCONAZOLE 200 MG/NS 100 ML 100 ML IV SCH (12:29)
[2018-11-12] MEDS ORDERED: FLUC200T8 PO (15:25)
[2018-11-12] MEDS ORDERED: PANT40TA25 PO (15:25)
[2018-11-12] MEDS ORDERED: AMOX-429 PO (15:25)
[2018-11-12 16:00] VITALS: BP 136/86
== END 2018-11-12 18:57 | disposition home or self-care (01) | DRG 392 ==
LOC: EDH 18:08 → EDHIP 18:09 → 4AH 11-04 13:37 → 4CH 11-08 17:56
PROVIDERS: ADMIT Internal Medicine; ATTEND Internal Medicine
DX: K57.20 Diverticulitis of large intestine with perforation and abscess without bleeding (principal); K57.30 Diverticulosis of large intestine without perforation or abscess without bleeding; D72.829 Elevated white blood cell count, unspecified; E66.9 Obesity, unspecified; E87.6 Hypokalemia; Z68.34 Body mass index [BMI] 34.0-34.9, adult
CPT/HCPCS: 36415; 74176; 74177; 80048; 80053; 82150; 83690; 84132; 85025; 85027; 85651; 86140; C9113; G0378; J1170; J1450; J1650; J1885; J1956; J2405; J2543; J2550; J2765; J3480; J3490; Q9963; Q9967